=== PATIENT | male | born 1945 | race Caucasian/White ===

== ENCOUNTER 2019-12-03 08:19 | Outpatient (CLI) | payer MEDICARE, BC, SELFPAY ==
--- NOTE | ~2019-12-03 | CT_ITS ---
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 The dose-length product (DLP) was 721.50 mGy-cm. Automated exposure control and iterative reconstruction technique were employed. COMPARISON: 06/18/2019, 04/09/2019 FINDINGS: CHEST CT: The lungs are free of acute opacities. There is no pleural effusion or pneumothorax. No pathologicall y enlarged thoracic lymph nodes are identified. The heart size is normal. A left subclavian Port-A-Ca th ends with its tip in the superior vena cava. There is a 7 mm nodule of the right thyroid. There is mild thoracic spondylosis. ABDOMEN/PELVIS CT: There are multiple stable low-attenuation masses of the liver. No new liver lesion is identified. The spleen, pancreas, and adrenal glands are normal. Stones are present in the nondistended gallbladder. There are changes of right hemicolectomy. No pathologically enlarged abdominal or pelvic lymph nodes are identified. There is no free intraperitoneal gas or evidence of bowel obstruction. There is a sm all volume of ascites. The previously described residual mass along the sigmoid mesentery in the left hemipelvis is slightly decreased in size measuring 11 mm in maximal dimension, previously 18 mm. The re is moderate to severe lumbar spondylosis. IMPRESSION: 1. Multiple stable liver lesions, consistent with stable metastatic disease. 2. Decrease in size of a small soft tissue peritoneal deposit along the sigmoid mesentery. 3. No thoracic metastatic disease identified. Reviewed, dictated and finalized at location B.
[2019-12-03 09:00] LABS: Estimated Glomerular Filt Rate > 60
== END 2019-12-03 08:20 | disposition home or self-care (01) ==
PROVIDERS: PCP Family Medicine; Visit Provider Internal Medicine Medical Oncology
DX: C18.0 Malignant neoplasm of cecum (principal); C78.7 Secondary malignant neoplasm of liver and intrahepatic bile duct; C78.6 Secondary malignant neoplasm of retroperitoneum and peritoneum
CPT/HCPCS: 36415; 71260; 74177; Q9967

== ENCOUNTER 2020-03-17 08:25 | Outpatient (CLI) | payer MEDICARE, BC, SELFPAY ==
--- NOTE | ~2020-03-17 | CT_ITS ---
EXAMINATION: CT chest abdomen pelvis w con DATE: 03/17/2020 17:58 CDT INDICATION: Cecal cancer. TECHNIQUE: Computed tomography (CT) of the chest, abdomen, and pelvis was performed with 100 cc Omnip aque 350 intravenous contrast. The dose-length product was 691.36 mGy-cm. Automated exposure control and iterative reconstruction technique were employed. COMPARISON: CT dated 12/03/2019 FINDINGS: CHEST CT: No thoracic lymphadenopathy. No axillary, mediastinal or hilar lymphadenopathy. No significant pleura l or pericardial effusion. Stable small 7 mm right thyroid nodule, likely benign. No focal airspace c onsolidation. No endobronchial lesions. Portacatheter tip in the SVC. No focal airspace consolidation . No pneumothorax. No pulmonary nodules/masses. ABDOMEN/PELVIS CT: Stable appearance to hypovascular lesions of the liver. Small amount of perihepatic ascites. There is splenomegaly. The pancreas, adrenal glands and kidneys are unremarkable. There are changes of right partial colectomy. There is colonic diverticulosis with thickening of the sigmoid colon. Mild pericol onic infiltration/fluid. No obstruction. No significant change to 12 mm soft tissue nodule left hemip héctor at the root of the mesentery. There are gallstones. There is thoracic and lumbar spondylosis. N o osteolytic or osteoblastic lesions are identified. IMPRESSION: 1. Stable liver lesions, consistent with metastatic disease. 2: Stable 12 mm soft tissue nodule at the mesenteric root of the sigmoid colon, possibly metastatic d isease. 3: Abnormal thickening of the sigmoid colon with diverticula and surrounding pericolonic infiltration . Cannot exclude diverticulitis or underlying malignancy of the sigmoid colon. 4: Splenomegaly. Reviewed, dictated and finalized at location A. IMPRESSION: 1. Stable liver lesions, consistent with metastatic disease. 2: Stable 12 mm soft tissue nodule at the mesenteric root of the sigmoid colon, possibly metastatic disease. 3: Abnormal thickening of the sigmoid colon with diverticula and surrounding pe ricolonic infiltration. Cannot exclude diverticulitis or underlying malignancy of the sigmoid colon. 4: Splenomegaly.
[2020-03-17 08:59] LABS: Estimated Glomerular Filt Rate > 60
== END 2020-03-17 08:26 | disposition home or self-care (01) ==
PROVIDERS: PCP Family Medicine; Visit Provider Internal Medicine Medical Oncology
DX: C18.0 Malignant neoplasm of cecum (principal); R16.1 Splenomegaly, not elsewhere classified
CPT/HCPCS: 36415; 71260; 74177; Q9967

== ENCOUNTER 2020-04-09 11:10 | Emergency (ER) | payer MEDICARE, BC, SELFPAY ==
[2020-04-09 11:28] VITALS: BP 166/65; PULSE 127; RESP 19; TEMP 36.4; O2SAT 99
--- NOTE | 2020-04-09 11:53 | PC.NURSE ---
urinary cath clamped at this time
--- NOTE | 2020-04-09 12:16 | ED.MALEGU ---
HPI - Male Genitourinary General Chief complaint: Urogenital-Male Stated complaint: Difficulty with Urination Time Seen by Provider: 04/09/20 11:45 Source: patient Mode of arrival: ambulatory Limitations: no limitations History of Present Illness HPI Narrative: Patient is a 75-year-old male who presents complaining of inability to urinate. He reports difficulty urinating with small amounts of urine and dribbling x5 days. Reports waking this a.m. and unable to urinated since last p.m. Denies pain. Denies hematuria. Denies history of prostate problems, however, in patient medical history it is reported that patient has enlarged prostate. MD Complaint: other Related Data Home Medications Medication Instructions Recorded Confirmed atorvastatin 10 mg tablet 10 mg PO DAILY 07/30/19 capecitabine 150 mg tablet 450 mg PO BID tablet 07/30/19 capecitabine 500 mg tablet 1,500 mg PO BID tablet 07/30/19 Allergies Allergy/AdvReac Type Severity Reaction Status Date / Time lisinopril Allergy Unknown cough Verified 04/09/20 11:30 Penicillins Allergy Unknown Unknown Verified 04/09/20 11:30 Review of Systems Review of Systems: Narrative: CONSTITUTIONAL: Denies fever, chills, or sweats. EYES: Denies visual changes, redness, or discharge. ENT: Denies rhinorrhea, congestion, sore throat, or otalgia. CARDIOVASCULAR: Denies chest pain, palpitations, or edema. RESPIRATORY: Denies cough or dyspnea. GASTROINTESTINAL: Denies abdominal pain, nausea, vomiting, or diarrhea. GENITOURINARY: Denies dysuria or hematuria. Reports inability to urinate. SKIN: Denies rash or itching. MUSCULOSKELETAL: Denies back pain, joint pain, or myalgia. NEUROLOGIC: Denies headache, numbness, dizziness, or weakness. PSYCHIATRIC: Denies anxiety or depression. PMFSH Family History Family History Grandparent Diabetes mellitus Father Family history of lung cancer Social History Social History Smoking status: Former smoker Smoking end date: 09/09/72 Alcohol intake: current Exam Narrative: Exam Narrative: GENERAL: Well-appearing, well-nourished, and in no acute distress. HEAD: Normocephalic, atraumatic. EYES: EOMI. No redness or drainage. Conjunctiva are normal. ENT: Mucous membranes pink and moist. CHEST: No respiratory distress. Clear to auscultation. HEART: Regular rate and rhythm. No murmur appreciated. Normal peripheral pulses. GI: Soft, nontender without rebound, or guarding. No distention. Bowel sounds normal in all quadrants. EXTREMITIES: Normal range of motion. No edema. SKIN: Warm, dry, no rash. NEURO: No focal deficits. Alert and oriented x3. Gait steady. PSYCH: Normal affect. No signs of depression or anxiety. Course Vital Signs Vital signs: Vital Signs Temperature 36.4 C L 04/09/20 11:28 Pulse Rate 127 H 04/09/20 11:28 Respiratory Rate 19 04/09/20 11:28 Blood Pressure 166/65 H 04/09/20 11:28 Pulse Oximetry 99 04/09/20 11:28 Temperature 36.4 C L 04/09/20 11:28 Pulse Rate 127 H 04/09/20 11:28 Respiratory Rate 19 04/09/20 11:28 Blood Pressure 166/65 H 04/09/20 11:28 Pulse Oximetry 99 04/09/20 11:28 REviewed. Patient also to follow up with pcp regarding htn. MDM - Male Genitourinary MDM Narrative Medical decision making narrative: Patient is here with urinary retention. Patient voided 980 mL per RN when bartlett catheter inserted. Discussed with patient the need to follow up with urology. Patient to go home with bartlett and leg bag. Patient educated on emptying. Patient aware of the need to follow up with urology on Saturday, referral to Dr. Sevilla given. Discussed plan of care with Dr. Haywood who agrees that patient may be monitored at home. Patient instructed on when to return to the ED for further evaluation. Differential Diagnosis Differential diagnosis: Likely urinary tract infe
[2020-04-09 12:51] VITALS: BP 130/51; PULSE 88; RESP 18; O2SAT 100
[2020-04-09 12:55] LABS: Add Urine Microscopic? YES; Appearance Urine Clear (Clear); Bilirubin Urine Negative (Negative); Blood Urine 1+ (Negative); Color Urine Yellow (Yellow); Glucose Urine UA Negative (Negative); Ketones Urine Negative (Negative); Leukocyte Esterase Ur Negative LEU/UL (Negative); Mucus Urine Rare /lpf; Nitrate Urine Negative (Negative); Protein Urine 1+ mg/dL (Negative); Specific Grav Ur 1.015 (1.001-1.035); Urobilinogen Urine Negative mg/dL (<2.0); WBC Urine 0-3 /hpf
== END 2020-04-09 13:25 | disposition home or self-care (01) ==
PROVIDERS: Emergency Provider Nurse Practitioner; PCP Family Medicine
DX: N40.1 Benign prostatic hyperplasia with lower urinary tract symptoms (principal); R33.8 Other retention of urine; Z87.891 Personal history of nicotine dependence
CPT/HCPCS: 51702; 81001; 99283

== ENCOUNTER 2020-04-11 09:06 | Observation (INO) | payer MEDICARE, BC, SELFPAY ==
--- NOTE | ~2020-04-11 | CT_ITS ---
EXAMINATION: CT abdomen pelvis wo con EXAM DATE: 04/11/2020 23:28 INDICATION: Perirectal wound. TECHNIQUE: Spiral CT of the abdomen and pelvis was performed without contrast. Axial, coronal and s agittal images were reviewed. The dose-length product (DLP) for this examination was 572.74 mGy-cm. The exposure was tailored according to patient size (auto mA exposure control), and iterative recons truction (ASIR) was used as additional dose reduction technique. Comparison is made to prior examinat ion from 03/17/2020. FINDINGS: There is extensive gas in the perineum, more on the right side, with multiple small pockets of air-fluid levels as well. Gas does extend toward the right aspect of the scrotum, more cephalad i nto both inguinal canal and up to the pelvic floor. 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 Recommend emergent surgical consult. Previously seen liver metastatic lesions less well-visualized without contrast. There are gallstones within an otherwise unremarkable gallbladder. No evidence of obstructive biliary disease. There is no nephrolithiasis or hydronephrosis. The prostate is unremarkable. Horowitz catheter within collaps ed bladder. There is no retroperitoneal or pelvic lymphadenopathy. There is mild to moderate scatt ered arteriosclerotic disease. The appendix is not positively visualized. There is no pericecal inflammatory change to suggest appe ndicitis. There is moderate sigmoid colonic diverticulosis. There is no adjacent inflammatory change to suggest diverticulitis. Multiple loops of moderately distended small bowel with air-fluid levels. There is also fluid in the colon. Could be ileus, no transition point is specifically suspected. Th ere is colonic fluid, correlate for diarrhea. No free intraperitoneal gas. There is a small peric ardial effusion. The heart is normal in size. The lung bases are unremarkable. There are no osteobl astic or osteolytic lesions identified. IMPRESSION: 1. Peroneal necrotizing fasciitis with extensive gas, multiple small air-fluid levels, gas extending into the right side of the scrotum, right inguinal canal, and up to the pelvic floor. Emergent surgi jose consult indicated. 2. Moderately distended small bowel, colon with fluid and gas, probably ileus. 3. Poorly visualized liver metastases, I discussed suspected necrotizing fasciitis with hospitalist Dr. Escobar taking care of patient at 2019 23:42 CDT. Reviewed, dictated and finalized at location G. IMPRESSION: 1. Peroneal necrotizing fasciitis with extensive gas, multiple small air-fluid levels, gas extending into the right side of the scrotum, right inguinal canal , and up to the pelvic floor. Emergent surgical consult indicated. 2. Moderately distended small bowel, colon with fluid and gas, probably ileus. 3. Poorly visualized liver metastases, I discussed suspected necrotizing fasciitis with hospitalist Dr. Shawn howard are of patient at 04/11/2020 23:42 CDT.
--- NOTE | ~2020-04-11 | XR_ITS ---
EXAMINATION: XR chest 2V DATE: 04/11/2020 10:02 INDICATION: Weakness and chills TECHNIQUE: AP and lateral views of the chest are obtained. COMPARISON: 01/14/2019 FINDINGS: The lungs are free of acute opacities. There is no pleural effusion or pneumothorax. The ca rdiomediastinal silhouette is normal. There are bridging osteophytes at multiple levels in the spine, consistent with diffuse idiopathic skeletal hyperostosis (DISH). A left subclavian Port-A-Cath ends with its tip at the superior cavoatrial junction. IMPRESSION: 1. No acute cardiopulmonary abnormality. Reviewed, dictated and finalized at location A.
[2020-04-11 09:19] VITALS: BP 116/85; PULSE 99; RESP 18; TEMP 36.6; O2SAT 100
--- NOTE | 2020-04-11 09:22 | ECG_ITS ---
Measurements Intervals [place] Rate: 97 P: 54 WI: 184 QRS: 5 QRSD: 93 T: 68 QT: 359 QTc: 457 Interpretive Statements SINUS RHYTHM BASELINE ARTIFACT- II, III, AVL, AVF, V1-V6 BORDERLINE ECG Electronically Signed On 04-11-2020 9:35:07 CDT by Vinh Mann D.O.
[2020-04-11 09:23] VITALS: BP 116/85; PULSE 96; PULSE 97; RESP 19; O2SAT 100
--- NOTE | 2020-04-11 09:30 | PC.NURSE ---
YANIV CM AT BEDSIDE, GISELA MORALES AT BEDSIDE FOR LAB DRAW.
--- NOTE | 2020-04-11 09:37 | PC.NURSE ---
GISELA MORALES UNABLE TO OBTAIN BLOOD.
[2020-04-11 09:56] LABS: Hematocrit 32.7 % (42.0-52.0); Hemoglobin 11.3 g/dL (14.0-18.0); Mean Corpuscular HGB Conc 34.6 g/dl (32-36); Mean Corpuscular Hemoglobin 37.3 pg (26-34); Mean Corpuscular Volume 107.9 fl (80-100); Mean Platelet Volume 9.5 fl (7.4-10.4); Platelet Count Result 237 k/mm3 (150-375); Red Blood Count 3.03 M/mm3 (4.6-6.20); Red Cell Distribution Width 17.6 % (11.5-14.5); White Blood Count 21.1 K/mm3 (4.5-10.0)
[2020-04-11 10:06] LABS: Add Urine Microscopic? YES; Appearance Urine Cloudy (Clear); Bacteria Urine Trace /hpf; Bilirubin Urine Negative (Negative); Blood Urine 3+ (Negative); Glucose Urine UA Negative (Negative); Ketones Urine Negative (Negative); Leukocyte Esterase Ur Negative LEU/UL (Negative); Mucus Urine Rare /lpf; Nitrate Urine Negative (Negative); Protein Urine 2+ mg/dL (Negative); RBC Urine 51-75 /hpf (0-2); Specific Grav Ur 1.019 (1.001-1.035); Squamous Epithelial Cell Urine Rare /hpf (Few); Uric Acid Crystals Urine Many /hpf; Urobilinogen Urine Negative mg/dL (<2.0); WBC Urine 51-75 /hpf
--- NOTE | 2020-04-11 10:06 | ED.WEAKNESS ---
HPI - Weakness General Chief complaint: Weakness Stated complaint: Weakness History of Present Illness HPI Narrative: Patient is a 55-year-old male who presents ER with weakness. Reports he was seen 3 days ago at [facility] cancer center. At that time he was found to have urinary retention and he had a Bartlett catheter placed. Since then he started to feel very weak and fatigued. Today he is unable to stand up or get out of bed due to his profound weakness. Reports urine is become more dark in color. No dysuria or fever/chills. He is without flank pain or abdominal pain. Has not had issues like this before. Takes an oral chemotherapeutic daily and also receives IV infusions. He has a port on the left side and reports that he has metastases to his liver. Patient reports excision of mass without need for colostomy. Related Data Home Medications Medication Instructions Recorded Confirmed atorvastatin 10 mg tablet 10 mg PO DAILY 07/30/19 04/11/20 capecitabine 150 mg tablet 450 mg PO BID tablet 07/30/19 capecitabine 500 mg tablet 1,500 mg PO BID tablet 07/30/19 Allergies Allergy/AdvReac Type Severity Reaction Status Date / Time lisinopril Allergy Unknown cough Verified 04/09/20 11:30 Penicillins Allergy Unknown Unknown Verified 04/09/20 11:30 Review of Systems Review of Systems: All systems reviewed & are unremarkable except as noted in HPI and below Constitutional: Constitutional: Denies chills, Reports fatigue, Denies fever(s) and Reports weakness ENT: Denies nasal congestion and Denies sore throat Cardiovascular: Cardiovascular: Denies chest pain Gastrointestinal: Gastrointestinal: Denies abdominal pain, Denies nausea and Denies vomiting Genitourinary: Genitourinary: Denies urinary frequency Comments: urinary retention with bartlett placement [facility] Past Medical History Medical History (Updated 04/11/20 @ 12:04 by Amilcar Lujan MD) Actinic keratoses Adenocarcinoma of colon, Reid's D Enlarged prostate without lower urinary tract symptoms (luts) Essential (primary) hypertension Metabolic syndrome Mixed hyperlipidemia Peripheral neuropathy Tips of fingers Surgical History Surgical History (Updated 04/11/20 @ 12:02 by Amilcar Lujan MD) History of partial colectomy Port-A-Cath in place Social History Social History Smoking packs per day: 0.5 Smoking cigarettes per day: 10.0 Years smoked: 12 Smoking pack-years: 6.00 Smoking status: Former smoker Tobacco type: cigarettes Smoking end date: 09/09/72 Alcohol intake: never Substance use type: prescription drug Gender identity (if verbalized by the patient): Male Spiritual care concerns: No Exam Narrative: Exam Narrative: GENERAL: Fatigued-appearing, well-nourished, and in no acute distress. HEAD: Normocephalic, atraumatic. EYES: PERRL and EOMI. ENT: Dry mucous membranes. CHEST: Clear to auscultation. No respiratory distress. HEART: Regular rate and rhythm. Normal peripheral pulses. ABDOMEN: Soft, nontender, nondistended. EXTREMITIES: Normal range of motion. Diffuse decrease in strength due to fatigue, difficulty lifting himself up in bed. SKIN: Warm, dry, no rash. NEURO: Alert and oriented x3. Course Course Emergency Course: Admit to the hospitalist service for IV antibiotics and IV fluid. SERGE with concerns for UTI. Significant bandemia. Blood cultures ordered and ceftriaxone given. Vital Signs Vital signs: Vital Signs Temperature 97.8 F 04/11/20 09:19 Pulse Rate 99 04/11/20 09:19 Respiratory Rate 18 04/11/20 09:19 Blood Pressure 116/85 04/11/20 09:19 Pulse Oximetry 100 04/11/20 09:19 Temperature 98.1 F 04/11/20 14:00 Pulse Rate 101 H 04/11/20 14:00 Respiratory Rate 16 04/11/20 14:00 Blood Pressure 151/46 H 04/11/20 14:00 Pulse Oximetry 100 04/11/20 14:00 MDM - Weakness Lab Data Result diagrams: 04/11/20 09:47
[2020-04-11 10:11] LABS: Alanine Aminotransferase 88 U/L (4-50); Albumin Level 3.7 g/dL (3.5-5.1); Alkaline Phosphatase 164 U/L (38-126); Anion Gap 14.7 mmol/L (7-16); Aspartate Amino Transferase 382 U/L (17-59); Bilirubin,Total 0.9 mg/dL (0.2-1.3); Blood Urea Nitrogen 54 mg/dL (9-20); Calcium 7.9 mg/dL (8.4-10.2); Carbon Dioxide 24 mmol/L (22-30); Chloride 97 mmol/L (98-107); Estimated CRCL calculation 36 ml/min; Estimated Glomerular Filt Rate 49; Glucose 125 mg/dL (75-110); Potassium 3.7 mmol/L (3.4-5.0); Sodium 132 mmol/L (137-145)
[2020-04-11 10:14] LABS: Band Neutrophils Percent 26 % (0-6); Lymphocytes Absolute Manual 1.05 K/mm3 (1.1-4.5); Lymphocytes Percent Manual 5 % (18-44); Monocytes Absolute Manual 0.63 K/mm3 (0.1-0.90); Monocytes Percent Manual 3 % (3-9); Neutrophils Percent Manual 65 % (46-73); Total Cells Counted 100
[2020-04-11 10:20] LABS: Platelet Estimate Adequate (Adequate)
[2020-04-11 10:24] LABS: Color Urine Dark Yellow (Yellow)
[2020-04-11] MEDS: SODIUM CHLORIDE 0.9% IV 1,000 ML 999 ML IV CONT (10:34)
--- NOTE | 2020-04-11 11:07 | PC.NURSE ---
REPORT GIVEN BEDSIDE TO TATIANA TOMPKINS AT THIS TIME, SHE HAS ASSUMED PT CARE, GISELA MORALES DRAWING BLOOD CULTURES PRIOR TO ANTIBIOTIC ADMINISTRATION.
--- NOTE | 2020-04-11 11:16 | PC.NURSE ---
2 SETS OF BLOOD CULTURES AND LACTIC DRAWN BY TECH AT THIS TIME.
[2020-04-11 12:14] VITALS: BP 119/56; PULSE 99; RESP 24; O2SAT 98
[2020-04-11 12:52] VITALS: BP 123/52; PULSE 98; RESP 21; O2SAT 100
--- NOTE | 2020-04-11 13:20 | PC.NURSE ---
This patient, Adam Hernandez, was admitted to [facility] Surg Room 315-02. Patient/family oriented to hospital policies and general routines including ID bracelet, bed and alarms, visiting hours, pain management, procedures, bathroom and other care routines, personal items, smoking policy, room service/diet, and visiting hours. Valuables list has been completed. Information on how to activate the Rapid Response Team has been discussed. Patient/Family are encouraged to report perceived risks to care and to ask questions if they do not understand what they are told or what they should do.
[2020-04-11] MEDS: SODIUM CHLORIDE 0.9% IV 1,000 ML 125 ML IV CONT ×2 (13:52→21:34)
[2020-04-11 13:53] VITALS: BMI 28.0
[2020-04-11 14:00] VITALS: BP 151/46; PULSE 101; RESP 16; TEMP 36.7; O2SAT 100
--- NOTE | 2020-04-11 20:53 | PM.IMHP ---
H&P: HPI History of Present Illness Date/Time: 04/11/20 20:53 Chief complaint: holland/uti Narrative: Adam Hernandez is a 75 year old male Who has a history of colon cancer that has metastasized to his liver. The patient goes to [facility]. He takes oral chemotherapy as well as IV infusion. He does have a Port-A-Cath . It looks like the patient came to the emergency room on the 1st was complaining of inability to urinate. He had some urinary retention he had a catheter placed in the emergency room with almost 1 L out of urine it. The patient had a Horowitz catheter that was left in place and he was referred to Urology. The patient had been dribbling for 5 days prior to that. He does have a history of having BPH. He tells me he also had a history of hypertension as well. The patient came back to the emergency room today with complaints of weakness. Patient was unable to stand Sineff get out of bed due to profound weakness. His urine has been more dark in color. He did have excision of his colon mask without any colostomy. His temperature was 97.8? today. He has leukocytosis of 21.1. H&H 11.3 and 32.7. The patient was found to have urinary tract infection was started on on ceftriaxone. I have spent approximately 45 minutes with this patient. Review of Systems Review of Systems: All systems reviewed & are unremarkable except as noted in HPI and below Constitutional: Constitutional: Reports as per HPI and Reports no additional constitutional complaints Eyes: Eyes: Reports as per HPI and Reports no additional eye complaints ENT: Reports system reviewed and no additional complaints, except as documented and Reports Normal hearing present Cardiovascular: Cardiovascular: Reports no additional cardiovascular complaints Respiratory: Respiratory: Reports no additional respiratory complaints and Reports no additional respiratory complaints Gastrointestinal: Gastrointestinal: Reports as per HPI and Reports no additional gastrointestinal complaints Musculoskeletal: Musculoskeletal: Reports no additional musculoskeletal complaints Integumentary/Breasts: Skin/Breast: Reports system reviewed and no additional complaints, except as docu and Reports as per HPI Neurologic: Reports system reviewed and no additional complaints, except as documented, Reports as per HPI and Reports Normal hearing present Psychiatric: Psychiatric: Reports no additional psychiatric complaints and Reports as per HPI Endocrine: Endocrine: Reports no additional endocrine complaints Hematologic/Lymphatic: Hematologic/Lymphatic: Reports no additional hematologic/lymphatic complaints Allergic/Immunologic: Allergic/Immunologic: Reports no additional allergic/immunologic complaints [facility] Past Medical History Medical History (Updated 04/11/20 @ 21:00 by Dali Wang NP) Actinic keratoses Adenocarcinoma of cecum, stage 4b Adenocarcinoma of colon, Reid's D Enlarged prostate without lower urinary tract symptoms (luts) Essential (primary) hypertension Metabolic syndrome Mixed hyperlipidemia Peripheral neuropathy Tips of fingers chemo due Surgical History Surgical History (Updated 04/11/20 @ 12:02 by Amilcar Lujan MD) History of partial colectomy Port-A-Cath in place Social History Social History (Updated 04/11/20 @ 21:01 by Dali Wang NP) Social History: the patient tells me that he is retired from the [employer]. 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 The patient stated that he is a DNR. He does not have any children. He lives with his . He said he occasionally drinks alcohol and that he used to smoke. No marijuana or illicit drugs. Smoking packs per day: 0.5 Smoking cigarettes per day: 10.0 Years smoked: 12 Smoking pack-years: 6.00 Smoking status: Former smoker Tobacco type: cigarettes Smoking end date: 09/09/72 Alcohol intake: never Substance use type: prescription
[2020-04-11] MEDS: ACETAMINOPHEN 325 MG TABLET 650 MG PO (21:20)
[2020-04-11 22:00] VITALS: BP 97/44; PULSE 96; RESP 18; TEMP 36.9; O2SAT 99
[2020-04-12 00:45] VITALS: BP 96/40; PULSE 72; RESP 18; TEMP 36.6; O2SAT 99
--- NOTE | 2020-04-12 00:50 | P.PNCROSS_ITS ---
Event Note Event Note Event Note: Earlier tonight the nurse had rolled the patient over and noticed that the patient had a red buttocks and an open area. She felt that it may be a fistula so i ordered a ct of the pelvis/abd . he has a history of colon cancer cancer of the cecum 4b . and had a colectomy in the past. He receives his care at [facility] and initially stated that he is a dnr as his cancer has mets to the liver. He is receiving oral and iv chemo. ct of the abd and pelvis was read as the following 1.Peroneal necrotizing fasciitis with extensive gas, multiple small air-fluid levels, gas extending into the right side of the scrotum, right inguinal canal, and up to the pelvic floor. Emergent surgical consult indicated. 2. Moderately distended small bowel, colon with fluid and gas, probably ileus. 3. Poorly visualized liver metastases, I called dr taylor and explained the results of the ct scan (i read the above results) and the patient history. The patient stated that he would like to retract his dnr and that he would go to [facility] if need be. I had called his karie and spoke with the patient with the risks and benefits. I spoke with and he recommended vanco and clindamycin. Patient is afebrile at this time. I spoke to Dr. Smith and he called [facility] to see if we can transfer the patient to [facility]. I spoke with the patient again and his . Dr. Tyalor stated that he would see the paient in the am. and not tonight. Lactic is pending.
[2020-04-12] MEDS: CLINDAMYCIN 900 MG/NS 50 ML 900 MG/50 ML PIGGYBACK 50 MG IVPB (01:18)
[2020-04-12 01:50] VITALS: BP 87/43
[2020-04-12 01:58] VITALS: BP 93/46; PULSE 80; RESP 18; TEMP 36.1; O2SAT 100
[2020-04-12] MEDS: SODIUM CHLORIDE 0.9% IV 500 ML IV CONT (02:09)
[2020-04-12 03:09] VITALS: BP 97/47; PULSE 82; RESP 16; TEMP 36.6; O2SAT 100
[2020-04-12 03:38] LABS: Reflex Lactic Acid Yes or No Add Lactic
--- NOTE | 2020-04-12 06:30 | PM.TDS ---
Transfer Discharge Sum: Prov Provider Date of admission: 04/11/20 12:05 Primary care physician: Giovani Benavidez MD Admitting clinician: Jw López MD Consults: 04/11/20 Consult to Physician Routine Comment: Consulting Provider: yardage caller/MD group to consult: dr taylor Reason for consultation: free air in 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 (2) Severe sepsis: Code(s): A41.9 - Sepsis, unspecified organism; R65.20 - Severe sepsis without septic shock Status: Acute (3) Lactic acidosis: Code(s): E87.2 - Acidosis Status: Acute (4) SERGE (acute kidney injury): Code(s): N17.9 - Acute kidney failure, unspecified Status: Acute (5) Acute UTI: Code(s): N39.0 - Urinary tract infection, site not specified Status: Acute (6) Adenocarcinoma of cecum, stage 4b: Code(s): C18.0 - Malignant neoplasm of cecum Status: Chronic Transfer Discharge Sum: Med Medications Active and Home Medications: Home Medications atorvastatin 10 mg tablet 10 mg PO DAILY 07/30/19 [History Confirmed 04/11/20] capecitabine 150 mg tablet 450 mg PO BID tablet 07/30/19 [History] capecitabine 500 mg tablet 1,500 mg PO BID tablet 07/30/19 [History] olmesartan 40 mg tablet 40 mg PO DAILY #90 tablet 10/06/19 [Rx Confirmed 04/11/20] Active Medications Acetaminophen (Tylenol Tablet) 650 mg PO Q4H PRN PRN Reason: Mild Pain (1-3) or Fever Last Admin: 04/11/20 21:20 Dose: 650 mg Documented by: Hydrocodone Bitart/Acetaminophen (Cecil 5-325 Mg) 1 tab PO Q4H PRN PRN Reason: Pain Rated 4-6 Atorvastatin Calcium (Lipitor) 10 mg PO DAILY DAVID Sodium Chloride (Normal Saline Iv) 1,000 mls @ 125 mls/hr IV CONT .Q8H DAVID Last Admin: 04/11/20 21:34 Dose: 125 mls/hr Documented by: Vancomycin HCl (Vancomycin 1,250 Mg/D5w 250 Ml) 1,250 mg in 250 mls @ 200 mls/hr IVPB Q36H DAVID Morphine Sulfate (Morphine Sulfate Inj) 4 mg IV PUSH Q2H PRN PRN Reason: Pain Rated 7-10 Olmesartan (Benicar) 40 mg PO QAM DAVID Ondansetron HCl (Zofran Inj) 4 mg IV PUSH Q4H PRN PRN Reason: Nausea Transfer Discharge Sum: Hosp Hospital Course Hospital course: Adam Hernandez is a 75 year old male with known hisotry of colon cancer metastatic to the liver who was admitted to the hospital this evening with severe sepsis and UTI was found to have a a red buttocks and an open area. The overnight SCALEMAKER ordered a CT abd/pelvis which demonstrated: Peroneal necrotizing fasciitis with extensive gas, multiple small air-fluid levels, gas extending into the right side of the scrotum, right inguinal canal, and up to the pelvic floor. Emergent surgical consult indicated. Overnight Surgeon, Dr. Stevenson was called by our SCALEMAKER and she read the results of the CT scan and described the patient's clinical condition to him. She stated that the patient would like treatment for his possible necrotizing fascitis vs. Fourneir's Gangrene. Dr. Stevenson stated that he would see the patient in the morning and not overnight. We started the patient on broad spectrum antibiotics including Vancomycin and Clindamycin as the patient had only had ceftriaxone in the ER. I called [facility] and discussed the case at length with the surgeon concrete buster operator, Dr. Del Rosario who agreed that the patient had a surgical emergency and needed emergent debridement. The patient's lactic acid came back at 3.0 and he also became hypotensive. He required a 1 liter NS IV bolus to improve his hemodynamics. The patient was accepted to the surgical ICU at [facility]. Time Spent with Patient Time attestation: Total time spent providing and/or coordinating transfer services: 45 minutes Exam Const: General: coope
--- NOTE | 2020-04-12 06:55 | PC.NURSE ---
this rn assisted pt with diane care after a bm, upon rolling pt to side and assessing his buttox i noticed his rt buttox was red and swollen with and i was unsure if stool had came from it (fisure). this rn notified mary and orders received for stat ct abd/pelvis. radiology called dr haskins w/ jaya and mary to floor to see pt. she contacted dr oviedo for emergency surgery but she was told he would see him in the am. mary spoke with pt and family for some time on the plan of care and risk involved with the surgery. pt did request his DNR be lifted at this time and to be a full code. dr haskins assumed care and felt the pt needed to seen right away by a surgical team as Ct results suggested. dr hasknis notified parisa and pt was accepted by dr graham. in the mean time L. A. was ordered and came back 3.0, and pt's b/p was low in the 90's and frequently dropped to high 80's. dr haskins notified and orders received for ivf bolus. parisa called with a bed assignment @ 0227 and this rn called to give report but the receiving rn was not available. licha rn called back to get report @ 0240, and ems was paged out immediately. this rn called family and informed her of the transfer and the receiving hospital visitor policy. ems arrives @0315 and pt leaves w/ all belongings
== END 2020-04-12 03:15 | disposition short-term general hospital (02) ==
LOC: ANHED 12:08 → ANH3MEDSUR 12:50
PROVIDERS: Nurse Practitioner; Admitting Provider Internal Medicine; Emergency Provider Emergency Medicine; PCP Family Medicine; Visit Provider Family Medicine
DX: A41.9 Sepsis, unspecified organism (principal); N39.0 Urinary tract infection, site not specified; R65.20 Severe sepsis without septic shock; N49.3 Fournier gangrene; N17.9 Acute kidney failure, unspecified; E87.2 Acidosis; C18.0 Malignant neoplasm of cecum; C78.7 Secondary malignant neoplasm of liver and intrahepatic bile duct; N40.1 Benign prostatic hyperplasia with lower urinary tract symptoms; R33.8 Other retention of urine; E78.2 Mixed hyperlipidemia; G62.0 Drug-induced polyneuropathy; T45.1X5S Adverse effect of antineoplastic and immunosuppressive drugs, sequela; I10 Essential (primary) hypertension; Z66 Do not resuscitate; Z79.899 Other long term (current) drug therapy; Z88.0 Allergy status to penicillin; Z87.891 Personal history of nicotine dependence; Z90.49 Acquired absence of other specified parts of digestive tract
CPT/HCPCS: 36415; 71046; 74176; 80053; 81001; 83605; 85025; 87040; 87076; 87077; 87086; 87186; 93005; 96361; 96365; 96375; 99285; A9270; G0378; J0696; J3370; J7030; J7040

== ENCOUNTER 2020-08-02 09:04 | Outpatient (CLI) | payer MEDICARE, BC, SELFPAY ==
[2020-08-02 09:23] LABS: Basophils Percent Auto 0.5 % (0.2-1.2); Eosinophils Absolute Auto 0.1 K/mm3 (0-0.3); Hemoglobin 10.5 g/dL (14.0-18.0); Immature Granulocyte Absolute 0.04 K/mm3 (0.00-0.031); Immature Granulocyte Percent A 0.7 % (0-0.5); Lymphocytes Absolute Auto 0.86 K/mm3 (0.9-3.2); Lymphocytes Percent Auto 14.7 % (18.3-44.2); Mean Corpuscular HGB Conc 31.8 g/dl (32-36); Mean Corpuscular Volume 91.2 fl (80-100); Mean Platelet Volume 8.7 fl (7.4-10.4); Monocytes Absolute Auto 0.5 K/mm3 (0.1-0.6); Monocytes Percent Auto 9.2 % (2.6-8.5); Neutrophils Absolute Auto 4.3 K/mm3 (1.3-6.7); Neutrophils Percent Auto 73.9 % (45.5-73.1); Platelet Count Result 222 k/mm3 (150-375); Red Blood Count 3.62 M/mm3 (4.6-6.20); Red Cell Distribution Width 14.1 % (11.5-14.5); White Blood Count 5.9 K/mm3 (4.5-10.0)
[2020-08-02 09:33] LABS: Alanine Aminotransferase 23 U/L (4-50); Albumin Level 4.4 g/dL (3.5-5.1); Alkaline Phosphatase 167 U/L (38-126); Anion Gap 7 mmol/L (8-16); Aspartate Amino Transferase 29 U/L (17-59); Bilirubin,Total 0.5 mg/dL (0.2-1.3); Blood Urea Nitrogen 21 mg/dL (9-20); Calcium 9.5 mg/dL (8.4-10.2); Carbon Dioxide 29 mmol/L (22-30); Chloride 104 mmol/L (98-107); Estimated Glomerular Filt Rate > 60; Glucose 105 mg/dL (75-110); Potassium 3.8 mmol/L (3.4-5.0); Sodium 140 mmol/L (137-145)
== END 2020-08-02 09:05 | disposition home or self-care (01) ==
PROVIDERS: PCP Family Medicine; Visit Provider Family Medicine
DX: E78.2 Mixed hyperlipidemia (principal); I10 Essential (primary) hypertension
CPT/HCPCS: 36415; 80053; 85025

== ENCOUNTER 2020-10-12 12:08 | Outpatient (RCR) | payer MEDICARE, BC, SELFPAY ==
[2020-10-12 14:48] VITALS: BMI 22.9
== END 2020-12-14 14:43 | disposition home or self-care (01) ==
LOC: ANHWOC 12:08
PROVIDERS: PCP Family Medicine; Visit Provider Physician Assistant
DX: Z43.3 Encounter for attention to colostomy (principal)
CPT/HCPCS: 99213; G0463

== ENCOUNTER 2020-11-01 08:59 | Emergency (ER) | payer MEDICARE, BC, SELFPAY ==
--- NOTE | ~2020-11-01 | XR_ITS ---
XR chest 1V portable DATE: 11/01/2020 10:41 INDICATION: Cough. Nausea. Hiccups for one week. TECHNIQUE: Portable upright AP chest on November 01, 2020 at 1030 hours COMPARISON: 04/11/2020 AP and lateral chest FINDINGS: Multiple up to approximately 8 mm and 10 mm masses overlie the right lung. Approximately 8 mm mass is suggested in the mid left lung. The findings suggest pulmonary metastatic disease. There are patchy infiltrates in the mid and lower lung zones, left greater than right, suggesting pne umonia. Heart size is normal. Is aortic arch calcification. Left Port-A-Cath catheter tip overlies upper right atrium. No pneumothorax. IMPRESSION: Bilateral pulmonary nodules, suggesting pulmonary metastatic disease Patchy mid and lower lung zone infiltrates, left greater than right Left Port-A-Cath Reviewed, dictated and finalized at [facility]. ETING OPERATIONS MANAGER IMPRESSION: Bilateral pulmonary nodules, suggesting pulmonary metastatic diseas e Patchy mid and lower lung zone infiltrates, left greater than right Left Port-A-Cath
--- NOTE | ~2020-11-01 | CT_ITS ---
EXAMINATION: CT chest abdomen pelvis wo con DATE: 11/01/2020 11:58 INDICATION: Difficulty swallowing. Abdominal pain. History of colon cancer. TECHNIQUE: Computed tomography (CT) of the chest, abdomen, and pelvis was performed without intraveno us contrast. Automated exposure control and iterative reconstruction technique were employed. Exam do se: 639.32 mGy-cm total exam DLP. COMPARISON: November 01, 2020 portable AP chest 04/28/2020 CT abdomen pelvis 03/17/2020 CT chest abdomen pelvis FINDINGS: CHEST CT: There are numerous pulmonary masses scattered in both lungs, measuring up to approximately 10.5 mm ma ximal dimension, strongly suggestive of pulmonary metastatic disease; less likely consideration would be pulmonary granulomas. There is patchy infiltrate in the posterior segment of the left upper lobe and lingula and the left l ower lobe. There is minimal dependent infiltrate or atelectasis at the right lower lobe. Mild right pleural effusion. Small pericardial effusion. Normal heart size. Coronary artery calcification. There is aortic and great vessel calcification. No thoracic aortic aneurysm. No hilar or mediastinal mass lesion or lymphadenopathy is evident. ABDOMEN/PELVIS CT: There is extensive hepatic metastatic disease, considerably worse compared to 04/11/2020. Spleen is wit hin upper normal size range. Gallstones are noted. No bile duct or pancreatic duct dilatation. No pancreatic mass lesion or calcif ication. Bilateral adrenal hypertrophy. No renal mass lesion or urinary tract calculus or hydroureteronephrosis. 10 mm soft tissue mass is noted in the lateral right abdomen between the right hepatic lobe and anter olateral aspect of the upper pole of the right kidney, not present on 04/11/2020, possibly a peritoneal metastatic lesion. There is mild ascites since 04/11/2020. Status post right colon resection for history of colon cancer. Prostate enlargement and calcifications. Diffuse thickening of the urinary bladder wall, likely due t o bladder outlet obstruction secondary to prostatomegaly. Left-sided colostomy. No bowel obstruction or intraperitoneal free air. There is atherosclerotic calcification but normal caliber of the abdominal aorta. Resolution of perineal necrotizing fasciitis since 05/08/2020. Diffuse idiopathic skeletal hyperostosis of the thoracic spine. Degenerative disc disease of the lumbar spine, particularly at L5-S1. No suspicious osteolytic or ost eoblastic lesions are noted. IMPRESSION: Numerous pulmonary likely metastatic lesions and considerably increased hepatic metastat ic disease since 04/11/2020. Probable right peritoneal metastatic deposit Status post right colectomy for colon cancer. Left colostomy Patchy bilateral pulmonary infiltrates and mild right pleural effusion Cholelithiasis Prostatomegaly and calcifications; the prostate enlargement likely accounts for diffuse thickening of the urinary bladder wall Reviewed, dictated and finalized at [facility]. Reviewed, dictated and finalized at location [facility]. MY CARE NURSE IMPRESSION: Numerous pulmonary likely metastatic lesions and considerably incr eased hepatic metastatic disease since 04/11/2020. Probable right peritoneal meta static deposit Status post right colectomy for colon cancer. Left colostomy Patchy bilateral pulmonary infiltrates and mild right pleural effusion Cholelithiasis Prostatomegaly and calcifications; the prostate enlargement likely accounts for diffuse thickening of the urinary bladder wall
[2020-11-01 09:06] VITALS: BP 136/71; PULSE 93; RESP 18; TEMP 36.4; O2SAT 100
--- NOTE | 2020-11-01 10:11 | ED.GENADULT ---
HPI - General Adult General Chief complaint: Nausea/Vomiting/Diarrhea Stated complaint: decreased po/dizzy Time Seen by Provider: 11/01/20 09:11 Source: patient and family Mode of arrival: ambulatory Limitations: no limitations History of Present Illness HPI narrative: Patient is a 75-year-old male who presents to emergency department for evaluation of weakness over the last week coupled with decreased appetite patient with history of colon cancer has not been able to have chemotherapy after he developed Rossy's gangrene had surgery at [facility] was placed on the group home in June has recently been released home after he is rehabilitation patient has not been able to have his chemotherapy until being released for his wound from his gangrene surgery patient on arrival notes that the wound is healing well he is followed by home health and primary care for this at this time patient denies any fever chills nausea vomiting diarrhea. Patient has a colostomy secondary to his gangrene surgery patient denies rectal bleeding melena and on arrival is in the room in no distress has had decreased activity and appetite in the last week is noted Related Data Home Medications Medication Instructions Recorded Confirmed hydrocortisone 2.5 % topical cream 1 applic TOPICAL DAILY PRN g 06/27/20 08/19/20 Allergies Allergy/AdvReac Type Severity Reaction Status Date / Time lisinopril Allergy Unknown cough Verified 08/30/20 10:52 Penicillins Allergy Unknown Unknown Verified 08/30/20 10:52 iodine Allergy Unknown Verified 11/01/20 09:11 Review of Systems Review of Systems: All systems reviewed & are unremarkable except as noted in HPI and below PMFSH Past Medical History Medical History Actinic keratoses Acute UTI Adenocarcinoma of cecum, stage 4b Adenocarcinoma of colon, Reid's D Enlarged prostate without lower urinary tract symptoms (luts) Essential (primary) hypertension Lactic acidosis Metabolic syndrome Mixed hyperlipidemia Peripheral neuropathy Tips of fingers chemo due Severe sepsis Surgical History Surgical History History of partial colectomy Port-A-Cath in place Family History Family History Grandparent Diabetes mellitus Father Family history of lung cancer Social History Social History Social History: the patient tells me that he is retired from the [employer]. 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 The patient stated that he is a DNR. He does not have any children. He lives with his . He said he occasionally drinks alcohol and that he used to smoke. No marijuana or illicit drugs. Smoking packs per day: 0.5 Smoking cigarettes per day: 10.0 Years smoked: 12 Smoking pack-years: 6.00 Tobacco type: cigarettes Smoking end date: 09/09/72 Alcohol intake: never Substance use type: prescription drug Gender identity (if verbalized by the patient): Male Spiritual care concerns: No Exam Narrative: Exam Narrative: GENERAL: Well-appearing, thin, and in no acute distress. HEAD: Normocephalic, atraumatic. EYES: PERRLA and EOMI. ENT: Nares clear, no rhinorrhea or epistaxis. Mucous membranes moist. CHEST: Clear to auscultation. No respiratory distress. No wheezes rales or rhonchi HEART: Regular rate and rhythm. No murmur heard. Normal peripheral pulses. ABDOMEN: Firm, nontender, nondistended, liquid stool in the colostomy bag EXTREMITIES: Normal range of motion. No edema. SKIN: Warm, dry, no rash. Postoperative rectal wound is well healed there is no erythema or other concerning findings NEURO: No focal deficits. Alert and oriented x3. Cranial nerves II through XII grossly intact PSYCH: Normal mood and affect. Course Co
[2020-11-01] MEDS: PANTOPRAZOLE SODIUM IV 40 MG VIAL IV PUSH (10:22)
[2020-11-01] MEDS: SODIUM CHLORIDE 0.9% IV 1,000 ML 999 ML IV CONT (10:22)
[2020-11-01 10:27] LABS: Basophils Percent Auto 0.2 % (0.2-1.2); Eosinophils Percent Auto 0.1 % (0-4.4); Hematocrit 34.6 % (42.0-52.0); Hemoglobin 10.8 g/dL (14.0-18.0); Immature Granulocyte Absolute 0.04 K/mm3 (0.00-0.031); Immature Granulocyte Percent A 0.4 % (0-0.5); Lymphocytes Absolute Auto 0.37 K/mm3 (0.9-3.2); Lymphocytes Percent Auto 3.3 % (18.3-44.2); Mean Corpuscular HGB Conc 31.2 g/dl (32-36); Mean Corpuscular Hemoglobin 27.4 pg (26-34); Mean Corpuscular Volume 87.8 fl (80-100); Monocytes Absolute Auto 0.6 K/mm3 (0.1-0.6); Monocytes Percent Auto 5.2 % (2.6-8.5); Neutrophils Absolute Auto 10.2 K/mm3 (1.3-6.7); Neutrophils Percent Auto 90.8 % (45.5-73.1); Red Blood Count 3.94 M/mm3 (4.6-6.20); Red Cell Distribution Width 14.6 % (11.5-14.5); White Blood Count 11.2 K/mm3 (4.5-10.0)
[2020-11-01 10:38] LABS: Alanine Aminotransferase 26 U/L (4-50); Albumin Level 3.5 g/dL (3.5-5.1); Alkaline Phosphatase 320 U/L (38-126); Anion Gap 5 mmol/L (8-16); Aspartate Amino Transferase 47 U/L (17-59); Bilirubin,Total 0.7 mg/dL (0.2-1.3); Blood Urea Nitrogen 22 mg/dL (9-20); Calcium 8.6 mg/dL (8.4-10.2); Carbon Dioxide 32 mmol/L (22-30); Chloride 101 mmol/L (98-107); Estimated CRCL calculation 74 ml/min; Estimated Glomerular Filt Rate > 60; Glucose 107 mg/dL (75-110); Lipase 51 U/L (23-300); Potassium 3.7 mmol/L (3.4-5.0); Sodium 138 mmol/L (137-145)
[2020-11-01 10:52] LABS: Large Platelets Present; Platelet Clumps Present; Platelet Estimate Adequate (Adequate)
[2020-11-01 10:53] LABS: Anisocytosis 1+ (NORMAL); Ovalocytes 1+ (NORMAL)
[2020-11-01 11:08] LABS: Add Urine Microscopic? YES; Appearance Urine Clear (Clear); Bacteria Urine Trace /hpf; Bilirubin Urine Negative (Negative); Blood Urine Negative (Negative); Color Urine Amber (Yellow); Glucose Urine UA Negative (Negative); Ketones Urine 1+ mg/dL (Negative); Leukocyte Esterase Ur Negative LEU/UL (Negative); Mucus Urine Heavy /lpf; Nitrate Urine Negative (Negative); Protein Urine 2+ mg/dL (Negative); RBC Urine 0-2 /hpf (0-2); Squamous Epithelial Cell Urine Rare /hpf (Few)
[2020-11-01 11:14] LABS: Specific Grav Ur 1.032 (1.001-1.035)
[2020-11-01 11:15] VITALS: BP 129/57; PULSE 76; RESP 16; O2SAT 99
[2020-11-01 12:00] VITALS: BP 132/74; PULSE 80; RESP 16; O2SAT 97
== END 2020-11-01 14:30 | disposition home or self-care (01) ==
PROVIDERS: Emergency Medicine Emergency Medical Services; Emergency Provider Emergency Medicine; PCP Family Medicine
DX: E86.0 Dehydration (principal); C18.0 Malignant neoplasm of cecum; N40.0 Benign prostatic hyperplasia without lower urinary tract symptoms; E78.2 Mixed hyperlipidemia; Z66 Do not resuscitate; Z87.891 Personal history of nicotine dependence; Z87.440 Personal history of urinary (tract) infections; R91.8 Other nonspecific abnormal finding of lung field; Z90.49 Acquired absence of other specified parts of digestive tract; C78.7 Secondary malignant neoplasm of liver and intrahepatic bile duct; Z93.3 Colostomy status; G62.0 Drug-induced polyneuropathy; T45.1X5A Adverse effect of antineoplastic and immunosuppressive drugs, initial encounter
CPT/HCPCS: 36415; 71045; 71250; 74176; 80053; 81001; 83690; 85025; 96361; 96374; 99284; C9113; J7030